=== PATIENT | female | born 1935 | race African-American/Black ===

== ENCOUNTER 2016-07-07 10:04 | Inpatient (IN) | payer MEDICARE, OTHER ==
[~2016-07-07] VITALS: Ht 152.4 cm; Wt 38.2 kg
--- NOTE | 2016-07-07 10:32 | NUR ---
PT TO ROOM FROM ADMISSIONS. WILL ADMIT. PT HAS ORDER FOR TELE, BUT THE MONITORS ARE BROKEN AND TELE SAMPLE CARD MAKER ONLY TAKING CHEST PAIN DX AT THIS TIME
[2016-07-07] MEDS ORDERED: OMEPRAZOLE20 M1 PO (10:43)
[2016-07-07] MEDS ORDERED: HYDROCODON-ACE1 EAC7 PO (10:43)
[2016-07-07] MEDS ORDERED: ULTRAM50 MG PO (10:43)
[2016-07-07 10:44] VITALS: BP 128/73; BMI 15.9
[2016-07-07] MEDS ORDERED: PROBIOTIC1 EAC1 PO (10:44)
[2016-07-07 10:49] LABS: BASOPHILS 0.1 % (0-2); EOSINOPHILS 0.1 % (0-7); HEMATOCRIT 32.5 % (36.0-48.0); HEMOGLOBIN 10.1 g/dL (12-16); IMMATURE GRANULOCYTES 0.3 % (0-5); LYMPHOCYTES 9.5 % (15-50); MCHC 31.1 g/dL (31.0-37.0); MCV 86.9 fL (80.0-100.0); MEAN PLATELET VOLUME 9.8 fL (7.4-10.4); MONOCYTES 7.7 % (2-11); NEUTROPHILS 82.3 % (40-80); PLATELET COUNT 592 10x3/uL (130-400); RBC 3.74 10x6/uL (4.00-5.40); RDW 15.3 % (11.5-14.5); WBC 11.6 10x3/uL (4.8-10.8)
--- NOTE | 2016-07-07 10:59 | NUR ---
STUDENT NURSE STARTED PIV TO LEFT WRIST 20G X2 STICKS. DRESSING CDI AND SIGNED AND DATED
[2016-07-07 11:18] LABS: ALBUMIN 2.2 g/dL (3.4-5.0); ALKALINE PHOSPHATASE 116 U/L (46-116); ALT (SGPT) 25 U/L (10-68); CALC OSMOLALITY 269 mosm/kg (275-300); CALCIUM 9.2 mg/dL (8.5-10.1); CARBON DIOXIDE 31.2 mmol/L (21.0-32.0); CHLORIDE - SERUM 97 mmol/L (98-107); CREATININE - SERUM 0.6 mg/dL (0.6-1.3); GLUCOSE 106 mg/dL (74-106); POTASSIUM - SERUM 4.4 mmol/L (3.5-5.1); PROTEIN - SERUM 6.4 g/dL (6.4-8.2); SODIUM 135 mmol/L (136-145); UREA NITROGEN 13 mg/dL (7-18); eGFR NON AFRICAN AMERICAN > 90 mL/min (90-120)
--- NOTE | 2016-07-07 12:10 | NUR ---
PT C/O PAIN IN ABDOMEN AREA. PAGED DR HER TO ASK TO RESTART HOME PAIN MEDICATIONS
[2016-07-07 12:18] VITALS: BP 129/73
[2016-07-07 12:57] LABS: % SATURATION 6 % (15-55); IRON 11 ug/dl (35-150); TOTAL IRON BIND CAPACITY 165 ug/dl (260-445); UNSAT IRON BIND CAPACITY 154 ug/dl (150-375)
[2016-07-07 13:13] LABS: THYROID STIMULATING HORMONE 2.63 uIU/mL (0.36-3.74)
--- NOTE | 2016-07-07 13:37 | NUR ---
PAGED DR KATHLEEN TO SEE IF OK WITH HER FOR PT TO RECEIVE MEGACE. (DR HER WANTS TO MAKE SURE OK WITH HER)
[2016-07-07 14:03] LABS: AMYLASE - SERUM 26 U/L (25-115); LIPASE 65 U/L (73-393)
--- NOTE | 2016-07-07 15:08 | NUR ---
SCDS ARE ON AND PATENT. PT SLEEPING SOUNDLY NO S/S DISTRESS NOTED. IV FLUIDS RUNNING TO LEFT WRIST WITHOUT ANY PROBLEMS WILL CONT TO MONITOR
--- NOTE | 2016-07-07 15:40 | NUR ---
HELPED PT TO RESTROOM, PT HASNT VOIDED SINCE ADMISSION. PT SAT ON TOILET FOR 15 MINS, NO LUCK. SCANNED BLADDER, CURRENTLY 233 ML..WILL CONT TO MONITOR
[2016-07-07 16:51] VITALS: BP 126/71
--- NOTE | 2016-07-07 17:17 | NUR ---
PT SITTING UP IN BED DENIES NEEDS WILL CONT TO MONITOR
--- NOTE | 2016-07-07 18:16 | NUR ---
DR KATHLEEN SAID OK TO DO IN AND OUT CATH IF PT UNABLE TO DO CLEAN CATCH. DONE. AND COLLECTED UA AND SENT TO LAB
[2016-07-07 18:30] LABS: APPEARANCE HAZY (CLEAR); BILIRUBIN NEGATIVE (NEGATIVE); COLOR YELLOW (YELLOW); GLUCOSE NEGATIVE (NEGATIVE); KETONE NEGATIVE (NEGATIVE); LEUKOCYTE ESTERASE NEGATIVE (NEGATIVE); NITRITE NEGATIVE (NEGATIVE); PROTEIN NEGATIVE (NEGATIVE); UROBILINOGEN NORMAL (NORMAL)
[2016-07-07 19:00] VITALS: BP 131/70
--- NOTE | 2016-07-07 20:06 | NUR ---
RECEIVED REPORT, PT RESTING QUIETLY, CALL LIGHT IN REACH, BED IS LOW, SRX2, WILL CONTINUE TO MONITOR
[2016-07-08 05:51] LABS: BASOPHILS 0.1 % (0-2); EOSINOPHILS 0.1 % (0-7); HEMATOCRIT 30.4 % (36.0-48.0); HEMOGLOBIN 9.7 g/dL (12-16); IMMATURE GRANULOCYTES 0.3 % (0-5); LYMPHOCYTES 6.9 % (15-50); MCH 27.3 pg (26.0-34.0); MCHC 31.9 g/dL (31.0-37.0); MCV 85.6 fL (80.0-100.0); MEAN PLATELET VOLUME 9.6 fL (7.4-10.4); MONOCYTES 6.5 % (2-11); NEUTROPHILS 86.1 % (40-80); PLATELET COUNT 516 10x3/uL (130-400); RBC 3.55 10x6/uL (4.00-5.40); RDW 15.3 % (11.5-14.5); WBC 12.1 10x3/uL (4.8-10.8)
[2016-07-08 07:33] VITALS: BP 147/74
[2016-07-08 08:00] VITALS: BP 135/74
[2016-07-08 09:45] LABS: T4 THYROXINE 8.6 ug/dL (4.7-13.3); THYROID STIMULATING HORMONE 1.97 uIU/mL (0.36-3.74)
[2016-07-08 10:00] VITALS: Ht 152.4 cm; Wt 38.2 kg
--- NOTE | 2016-07-08 17:29 | NUR ---
PATIENT IS CURRENTLY SITTING UP IN HER BED EATING HER MEAL. REQUIRES ASSISTANCE WITH MEAL SET UP. PATIENT IS ABLE TO ANSWER QUESTIONS APPROPRIATELY. REQUIRES ASSISTANCE X1 TO GET UP OOB TO STANDING. GAIT IS STEADY. IV IS INFUSING PER ORDERS. IRON IS COMPLETED. PATIENT DOES C/O GASTRIC PAIN THAT IS ONLY MINIMALLY RELIEVED BY NORCO. HAVE CLARIFIED WHERE THE GI DOCTOR LOCATION. WILL OBTAIN RECORDS. SUNDAY
[2016-07-08 18:34] LABS: ALBUMIN 1.8 g/dL (3.4-5.0); BILIRUBIN - DIRECT 0.18 mg/dL (0.00-0.30); BILIRUBIN - INDIRECT 0.32 mg/dL (0.00-1.00); BILIRUBIN - TOTAL 0.5 mg/dL (0.2-1.3); PROTEIN - SERUM 5.9 g/dL (6.4-8.2)
[2016-07-08 20:00] VITALS: BP 110/64
--- NOTE | 2016-07-08 23:48 | NUR ---
INIITAL ROUNDS COMPLETED AT 192 HRS. ASSISTED TO BR. VOIED SMALL AMOUNT OF URINE. ASSISTED BACK TO BED. ASSESSMENT COMPLETED AT 2024 HRS. VSS. IV TO L WRIST WITH NS AT 75CC/HR. IV PATENT. LUNGS DIMINISHED IN BASES BILAT. SMALL 1CM SORE NOTED TO INNER R BUTTOCKS. SCD'S IN USE. REMOVED AND SKIN INSPECTED. NO BREAKDOWN NOTED. PT CURRENTLY RESTING WITH EYES CLOSED. RESP EVEN AND REGULAR. SR UP X2, CALL LIGHT WITHIN REACH.
[2016-07-09] VITALS: BP 114/62
--- NOTE | 2016-07-09 01:07 | NUR ---
PT RESTING WITH EYES CLOSED. RESP EVEN AND REGULAR. SR UP X2,CALL LIGHT WITHIN REACH.
--- NOTE | 2016-07-09 03:37 | NUR ---
PT RESTING WITH EYES CLOSED. RESP EVEN AND REGULAR. SR UP X2, CALL LIGHT WITHIN REACH.
[2016-07-09 04:00] VITALS: BP 120/68
--- NOTE | 2016-07-09 04:35 | NUR ---
PT RESTING WITH EYES CLOSED. RESP EVEN AND REGULAR. SR UP X2, CALL LIGHT WITHIN REACH AND BED ALARM ON.
[2016-07-09 04:57] LABS: BASOPHILS 0.1 % (0-2); EOSINOPHILS 0.3 % (0-7); HEMATOCRIT 29.4 % (36.0-48.0); HEMOGLOBIN 9.2 g/dL (12-16); IMMATURE GRANULOCYTES 0.3 % (0-5); LYMPHOCYTES 9.3 % (15-50); MCH 26.7 pg (26.0-34.0); MCHC 31.3 g/dL (31.0-37.0); MCV 85.5 fL (80.0-100.0); MEAN PLATELET VOLUME 9.6 fL (7.4-10.4); MONOCYTES 7.5 % (2-11); NEUTROPHILS 82.5 % (40-80); PLATELET COUNT 560 10x3/uL (130-400); RBC 3.44 10x6/uL (4.00-5.40); RDW 15.1 % (11.5-14.5); WBC 10.4 10x3/uL (4.8-10.8)
[2016-07-09 05:25] LABS: ALBUMIN 1.5 g/dL (3.4-5.0); ALKALINE PHOSPHATASE 93 U/L (46-116); ALT (SGPT) 15 U/L (10-68); CALC OSMOLALITY 272 mosm/kg (275-300); CALCIUM 8.3 mg/dL (8.5-10.1); CARBON DIOXIDE 27.4 mmol/L (21.0-32.0); CHLORIDE - SERUM 102 mmol/L (98-107); CREATININE - SERUM 0.5 mg/dL (0.6-1.3); GLUCOSE 105 mg/dL (74-106); POTASSIUM - SERUM 3.7 mmol/L (3.5-5.1); PROTEIN - SERUM 5.3 g/dL (6.4-8.2); SODIUM 137 mmol/L (136-145); UREA NITROGEN 9 mg/dL (7-18); eGFR NON AFRICAN AMERICAN > 90 mL/min (90-120)
--- NOTE | 2016-07-09 05:46 | NUR ---
VSS THROUGHOUT NIGHT. PT DENIED ANY DISCOMFORT. NEEDS MET; WILL CONTINUE TO MONITOR.
[2016-07-09 08:00] VITALS: BP 135/75
--- NOTE | 2016-07-09 09:00 | NUR ---
ALERT AND ORIENTED X4. AMBULATING IN [place], PHYSICAL THERAPY STAND BY ASSIST. AMBULATES 500FT. GAIT STEADY. PHYSICAL THERAPY SIGNED OFF. RETURN TO ROOM. LT WRIST IV INFILTRATED. DC LT WRIST IV TIP INTACT. REPORTS LT SIDE PAIN 08/19. INITIATE PAIN MANAGEMENT ORDERED. DENIES SOB. CONTINUE PLAN OF CARE AND SAFETY PRECAUTIONS.
--- NOTE | 2016-07-09 14:00 | NUR ---
RESITE IV RT FA 20G SUCCESSFUL X3 ATTEMPTS. ALERT AND ORIENTED X4. FAMILY AT BEDSIDE. DENIES ANY NEEDS AT THIS TIME. CONTINUE PLAN OF CARE AND SAFETY PRECAUTIONS.
[2016-07-09 16:00] VITALS: BP 118/67
--- NOTE | 2016-07-09 20:06 | NUR ---
INITIAL ROUNDS COMPLETED AT 5 HRS. PT DENIED ANY DISCOMFORT. ASSESSMETN COMPLETED AT 1940 HRS. IV TO RFA WITH NS AT 75CC/HR. IV PATNETN. LUNGS ESSSENTIALLY CTA. HEART TONES S1 S2. JEFFERY. DECLINES SCD'S AT THIS TIME. WILL CONTINUE TO MONITOR. SR UP X2, CALL LIGHT WITHIN REACH AND BED ALARM ON.
--- NOTE | 2016-07-09 22:09 | NUR ---
PM MEDS GIVEN. PT DENIES ANY DISCOMFORT. WILL CONTINUE TO MONITOR.
[2016-07-09 22:11] VITALS: BP 118/63
[2016-07-10] VITALS: BP 153/69
--- NOTE | 2016-07-10 00:38 | NUR ---
ASSISTED PT TO BR. VOIDED 300CC OF URINE WITH TINY AMOUNT OF BOYKIN STOOL. ASSITED BACK TO BED. PT DENIES ANY DISCOMFORT. WILL CONTINUE TOMONITOR.
--- NOTE | 2016-07-10 02:45 | NUR ---
PT RESTING WITH EYES CLOSED. RESP EVEN AND REGULAR. SR UP X2, CALL LIGHT WITHIN REACH.
--- NOTE | 2016-07-10 04:38 | NUR ---
PT AWAKE; DENIES ANY DISCOMFORT. WILL CONTINUE TO MONITOR.
[2016-07-10 04:56] LABS: BASOPHILS 0.1 % (0-2); EOSINOPHILS 0.2 % (0-7); HEMATOCRIT 29.2 % (36.0-48.0); HEMOGLOBIN 9.1 g/dL (12-16); IMMATURE GRANULOCYTES 0.3 % (0-5); LYMPHOCYTES 11.7 % (15-50); MCH 26.6 pg (26.0-34.0); MCHC 31.2 g/dL (31.0-37.0); MCV 85.4 fL (80.0-100.0); MEAN PLATELET VOLUME 10.1 fL (7.4-10.4); MONOCYTES 10.9 % (2-11); NEUTROPHILS 76.8 % (40-80); PLATELET COUNT 572 10x3/uL (130-400); RBC 3.42 10x6/uL (4.00-5.40); RDW 15.3 % (11.5-14.5); WBC 8.6 10x3/uL (4.8-10.8)
[2016-07-10 05:02] LABS: CALC OSMOLALITY 271 mosm/kg (275-300); CALCIUM 8.4 mg/dL (8.5-10.1); CARBON DIOXIDE 29.2 mmol/L (21.0-32.0); CHLORIDE - SERUM 102 mmol/L (98-107); CREATININE - SERUM 0.5 mg/dL (0.6-1.3); GLUCOSE 86 mg/dL (74-106); POTASSIUM - SERUM 3.9 mmol/L (3.5-5.1); SODIUM 137 mmol/L (136-145); UREA NITROGEN 9 mg/dL (7-18); eGFR NON AFRICAN AMERICAN > 90 mL/min (90-120)
[2016-07-10 06:17] VITALS: BP 129/75
--- NOTE | 2016-07-10 06:25 | NUR ---
VSS THROUGHOUT NGIHT. PT DENIED ANY DISCOMFORT. STOOL SAMPLE SENT TOLAB. SAMPLE SAN IN COLOR. NEEDS MET; WILL CONTINUE TO MONITOR.
[2016-07-10 08:45] VITALS: BP 145/70
[2016-07-10 12:12] LABS: FOLATE (FOLIC ACID) - SERUM 7.6 ng/mL (>3.0)
[2016-07-10 12:47] VITALS: BP 97/57
--- NOTE | 2016-07-10 13:16 | NUR ---
Nutrition Follow Up: Chart reviewed. Pt is tolerating regular diet. +BM 07/10/16. Labs reviewed. Meds noted including Zofran, Megace, NS @ 75 ml/hr. 24 hour Calorie Count: 07/08/16 Lunch: 363 kcal14 g protein 07/08/16 Dinner: 790 kcal27 g protein 07/09/16 Breakfast:230 kcal2 g protein 07/09/16: Lunch: 351 kcal14 g protein Total for 24 hours: 1734 kcal57 g protein Pt is meeting est nutritional needs. She has excellent po intake at this time. Rec continue current diet, appetite stimulant. Will continue to provide selective menus and honor food preferences. RD following.
[2016-07-10 17:26] VITALS: BP 103/57
--- NOTE | 2016-07-10 18:06 | NUR ---
ALERT AND ORIENTED X4. RESTING IN BED. KENNETH OINTMENT ORDERED FOR BUTTOCKS. NEEDS EGG CRATE MATTRESS. RISK FOR INJURY FOR AIR MATTRESS. CHE ([place]) REQUESTING SURGERY CONSULT REGARDING GI FINDINGS. CONTINUE PAIN MANAGEMENT FOR ABDOMINAL PAIN ORDERED. DENIES SOB. CONTINUE PLAN OF CARE AND SAFETY PRECAUTIONS.
--- NOTE | 2016-07-10 19:37 | NUR ---
ALERT/AWAKE ORIENTED X 4. C/O RT SHOULDER PAIN LEVEL 6 ON NUMBER SCALE. STATED FROM A FALL AT HOME. IV IN R FA INTACT WITH NS INFUSING AT 75ML/HR. NO S/S OF REDNESS OR EDEMA. TURNED TO RT SIDE WITH PILLOW TO BACK. EXCORIATION AND REDNESS NOTED ON LEFT BUTTOCK. SCD'S ARE ON. ORIENTED TO CALL LIGHT FOR ANY NEEDS. BEDSIDE TABLE WITH PERSONAL ITEMS PLACED IN REACH.
[2016-07-10 19:45] VITALS: BP 111/71
[2016-07-11 00:29] VITALS: BP 115/64
--- NOTE | 2016-07-11 01:04 | NUR ---
REPOSITIONED UP IN BED AND TO RIGHT SIDE WITH PILLOW TO BACK. DID NOT WANT TO USE BATHROOM. APPLIED CALMOSEPTINE TO BUTTOCKS.
--- NOTE | 2016-07-11 05:16 | NUR ---
ASSISTED BACK TO BED FROM [facility] [place] [facility]. VOIDED 350CC DARK URINE AND SMALL AMT OF BOYKIN COLORED LIQUID STOOL. POSITIONED TO LEFT SIDE WITH PILLOW TO HER BACK. TOOK A FEW SIPS OF ICE WATER. REQUESTED LIGHTS OFF TO SLEEP.
[2016-07-11 05:52] LABS: BASOPHILS 0.2 % (0-2); EOSINOPHILS 0.1 % (0-7); HEMATOCRIT 30.9 % (36.0-48.0); HEMOGLOBIN 9.6 g/dL (12-16); IMMATURE GRANULOCYTES 0.4 % (0-5); LYMPHOCYTES 12.5 % (15-50); MCH 26.9 pg (26.0-34.0); MCHC 31.1 g/dL (31.0-37.0); MCV 86.6 fL (80.0-100.0); MEAN PLATELET VOLUME 10.5 fL (7.4-10.4); MONOCYTES 11.1 % (2-11); NEUTROPHILS 75.7 % (40-80); RBC 3.57 10x6/uL (4.00-5.40); RDW 15.7 % (11.5-14.5)
[2016-07-11 06:04] LABS: PLATELET COUNT 363 10x3/uL (130-400)
[2016-07-11 06:18] LABS: ALBUMIN 1.7 g/dL (3.4-5.0); ALKALINE PHOSPHATASE 94 U/L (46-116); ALT (SGPT) 15 U/L (10-68); CALC OSMOLALITY 268 mosm/kg (275-300); CALCIUM 8.5 mg/dL (8.5-10.1); CARBON DIOXIDE 25.6 mmol/L (21.0-32.0); CHLORIDE - SERUM 103 mmol/L (98-107); CREATININE - SERUM 0.4 mg/dL (0.6-1.3); GLUCOSE 83 mg/dL (74-106); MAGNESIUM - SERUM 1.5 mg/dL (1.8-2.4); PHOSPHOROUS 2.8 mg/dL (2.5-4.9); POTASSIUM - SERUM 4.2 mmol/L (3.5-5.1); PROTEIN - SERUM 5.4 g/dL (6.4-8.2); SODIUM 136 mmol/L (136-145); UREA NITROGEN 8 mg/dL (7-18); eGFR NON AFRICAN AMERICAN > 90 mL/min (90-120)
--- NOTE | 2016-07-11 07:40 | NUR ---
ALERT AND ORIENTED X4. RESTING IN BED. FAMILY AT BEDSIDE. ORDERED PHYSICAL THERAPY TO ASSIST AMBULATING ONCE A DAY. EGG CRATE ORDERED. NOTIFIED OF CONSULT. COMPLAINS OF ABDOMINAL PAIN. INITIATE PAIN MANAGEMENT ORDERED. DENIES SOB. CONTINUE PLAN OF CARE AND SAFETY PRECAUTIONS. BED ALARM ON. SCDs ON.
[2016-07-11 09:12] VITALS: BP 123/64
[2016-07-11 12:11] VITALS: BP 108/61
[2016-07-11 15:18] VITALS: BP 107/61
--- NOTE | 2016-07-11 17:03 | NUR ---
Patient Name: BEN JORDAN Admission Status: Urgent Accout number: [id number] Admission Date: 07-07-2016 : 1935 Admission Diagnosis: Attending: RADHA Current LOS: 4 Anticipated DC Date: 07-11-2016 Planned Disposition: Long-Term Facility Primary Insurance: MEDICARE A & B PLANNED EXTERNAL PROVIDER: [facility] BED Discharge Planning Comments: * Is the patient Alert and Oriented? Yes 0 * How many steps to enter\exit or inside your home? 2 0 * PCP DR. EDWARDS IN [place] 0 * Pharmacy [facility] IN [place] 0 * Preadmission Environment Home with Family 0 * ADLs Independent 0 * Equipment None 0 * Other Equipment NO MEDICAL EQUIPMENT PROVIDER PREFERENCE 0 * List name and contact numbers for known caregivers / representatives who currently or will assist patient after discharge: ROCKY JORDAN, SPOUSE, 0 * Community resources currently utilized Home Health 0 * Please name any agencies selected above. [facility] 0 * Additional services required to return to the preadmission environment? No 0 * Can the patient safely return to the preadmission environment? Yes 0 * Has this patient been hospitalized within the prior 30 days at any hospital? No 0 CM MET WITH PT AND SPOUSE IN ROOM TO DISCUSS DISCHARGE PLANNING AND NEEDS. PT REPORTS LIVING AT HOME INDEPENDENTLY WITH HER SPOUSE. PT HAS NO MEDICAL EQUIPMENT AND HOME HEALTH WITH [facility]. PT'S SPOUSE REPORTS HOME HEALTH HAS ORDERED MEDICAL EQUIPMENT FOR HOME. CM DISCUSSED AVAILABILITY OF HOME HEALTH, REHAB SERVICES AND MEDICAL EQUIPMENT. PT DENIES DISCHARGE NEEDS, FAMILY IS CONSIDERING REHAB AT [facility]. CM PROVIDED [facility] INFORMATION AND CHOICE LETTER. CM WAITING FAMILY DECISION FOR [facility] REHAB AT [facility] VS HOME WITH [facility] RESUMPTION. Food Court Team Member: Neo Gonzales
--- NOTE | 2016-07-11 19:27 | NUR ---
ALERT/ORIENTED X 4. DENIES PAIN OR ANY NEEDS. POSITIONED TO RIGHT SIDE. IV IN R FA WITH NS INFUSING 75ML/HR. ORIENTED TO CALL LIGHT FOR ANY NEEDS OR DISCOMFORTS.
[2016-07-11 20:18] VITALS: BP 124/66
[2016-07-11 21:00] LABS: C-REACTIVE PROTEIN 11.2 mg/dL (0.0-0.9); MAGNESIUM - SERUM 1.4 mg/dL (1.8-2.4); PRE-ALBUMIN 9.3 mg/dL (18.0-35.7)
[2016-07-11 21:05] LABS: TROPONIN-I 0.016 ng/mL (0.000-0.060)
--- NOTE | 2016-07-11 22:30 | NUR ---
BACK FROM CT SCAN. ASSISTED TO [facility] [place] [facility] AND VOIDED 400CC URINE. APPLIED CALMOSEPTINE OINTMENT TO BUTTOCKS.
[2016-07-11 23:57] VITALS: BP 127/61
[2016-07-12 03:52] VITALS: BP 129/66
--- NOTE | 2016-07-12 04:10 | NUR ---
ADMIN NORCO 5 PO FOR C/O ABD PAIN LEVEL 6 ON NUMBER SCALE. POINTING TO UPPER ABD, DESCRIBING A BURNING PAIN. ALSO ADMIN ZOFRAN IV FOR SPITTING UP SMALL AMOUT OF PINKISH FLUID. SAME COLOR CONTRAST SHE DRANK FOR CT SCAN EARLIER IN THE EVENING.
[2016-07-12 04:54] LABS: HEMATOCRIT 26.8 % (36.0-48.0); HEMOGLOBIN 8.4 g/dL (12-16); MCH 26.5 pg (26.0-34.0); MCHC 31.3 g/dL (31.0-37.0); MEAN PLATELET VOLUME 9.6 fL (7.4-10.4); RBC 3.17 10x6/uL (4.00-5.40); RDW 15.7 % (11.5-14.5); WBC 10.7 10x3/uL (4.8-10.8)
[2016-07-12 05:07] LABS: MCV 84.5 fL (80.0-100.0); PLATELET COUNT 598 10x3/uL (130-400)
[2016-07-12 05:17] LABS: ALBUMIN 1.6 g/dL (3.4-5.0); ALKALINE PHOSPHATASE 89 U/L (46-116); ALT (SGPT) 12 U/L (10-68); BILIRUBIN - TOTAL 0.37 mg/dL (0.2-1.3); CALCIUM 8.4 mg/dL (8.5-10.1); CARBON DIOXIDE 27.2 mmol/L (21.0-32.0); CHLORIDE - SERUM 103 mmol/L (98-107); GLUCOSE 89 mg/dL (74-106); PROTEIN - SERUM 5.5 g/dL (6.4-8.2); SODIUM 135 mmol/L (136-145)
[2016-07-12 05:36] LABS: CALC OSMOLALITY 265 mosm/kg (275-300); CREATININE - SERUM 0.6 mg/dL (0.6-1.3); POTASSIUM - SERUM 3.3 mmol/L (3.5-5.1); UREA NITROGEN 5 mg/dL (7-18); eGFR NON AFRICAN AMERICAN > 90 mL/min (90-120)
[2016-07-12 05:51] LABS: LYMPHOCYTES 10 % (15-50); MONOCYTES 8 % (2-11); NEUTROPHILS 72 % (40-80); PLATELET ESTIMATE NORMAL; PLATELET MORPHOLOGY GIANT PLTS PRESENT
[2016-07-12 06:10] LABS: ERYTHROCYTE SEDIMENTATION RATE 41 mm/hr (0-30)
[2016-07-12 07:30] VITALS: BP 115/62
--- NOTE | 2016-07-12 11:21 | NUR ---
RIGHT FA IV INITIATED AFTER THE IV ACCESS IN HER WRIST APPEARED TO BE SWELLING AND WAS INFILTRATED.
[2016-07-12 12:30] VITALS: BP 137/72
--- NOTE | 2016-07-12 14:11 | NUR ---
PATIENT IS SITTING UP IN THE BEDSIDE CHAIR. SHE HAS EATEN HER LUNCH WHILE VISITING WITH HER BROTHER.
--- NOTE | 2016-07-12 16:05 | NUR ---
PATIENT SIGNED CONSENT TO RECEIVE A UNIT OF PRBC.
[2016-07-12 16:30] VITALS: BP 141/70
--- NOTE | 2016-07-12 17:03 | NUR ---
BLOOD INFUSING WITHOUT EVIDENCE OF ADVERSE REACTIONS.
[2016-07-12 19:00] VITALS: BP 118/63
--- NOTE | 2016-07-12 19:12 | NUR ---
PT RECEIVED LYING IN BED RESTING QUIETLY AT THIS TIME. REQUESTS TO GET UP AND USE RESTROOM AT THIS TIME. PT VOIDED APPROX 200 CC AT THIS TIME. ASSISTED PT BACK TO BED. ASSESSMENT COMPLETED PER FLOW SHEET. PT DENIES NEEDS AT THIS TIME. BED LOW. PHONE AND CALL LIGHT IN REACH. SRX2.
--- NOTE | 2016-07-12 20:25 | NUR ---
PM MEDS GIVEN AT THIS TIME. PT DENIES NEEDS. BED LOW. PHONE AND CALL LIGHT IN REACH. SRX2.
--- NOTE | 2016-07-12 22:00 | NUR ---
PT RESTING QUIETLY AT THIS TIME WITH EYES CLOSED. RESPIRATIONS EVEN, NON-LABORED. NO ACUTE DISTRESS NOTED AT THIS TIME. BED LOW. PHONE AND CALL LIGHT IN REACH. SRX2.
[2016-07-13] VITALS: BP 119/63
[2016-07-13 04:00] VITALS: BP 118/65
--- NOTE | 2016-07-13 07:16 | NUR ---
PT SITTING UP IN BED DENIES NEEDS WILL CONT TO MONITOR
[2016-07-13 08:00] VITALS: BP 119/62
[2016-07-13 08:41] LABS: BASOPHILS 0.1 % (0-2); EOSINOPHILS 0.3 % (0-7); IMMATURE GRANULOCYTES 0.5 % (0-5); LYMPHOCYTES 10.2 % (15-50); MCH 26.4 pg (26.0-34.0); MCHC 31.6 g/dL (31.0-37.0); MCV 83.8 fL (80.0-100.0); MEAN PLATELET VOLUME 9.6 fL (7.4-10.4); MONOCYTES 9.5 % (2-11); NEUTROPHILS 79.4 % (40-80); PLATELET COUNT 568 10x3/uL (130-400); WBC 10.2 10x3/uL (4.8-10.8)
[2016-07-13 08:47] LABS: HEMOGLOBIN 10.1 g/dL (12-16); RBC 3.82 10x6/uL (4.00-5.40)
[2016-07-13 08:49] LABS: CALC OSMOLALITY 276 mosm/kg (275-300); CALCIUM 8.8 mg/dL (8.5-10.1); CARBON DIOXIDE 27.4 mmol/L (21.0-32.0); CHLORIDE - SERUM 107 mmol/L (98-107); CREATININE - SERUM 0.7 mg/dL (0.6-1.3); GLUCOSE 97 mg/dL (74-106); POTASSIUM - SERUM 3.5 mmol/L (3.5-5.1); SODIUM 139 mmol/L (136-145); eGFR NON AFRICAN AMERICAN 85 mL/min (90-120)
[2016-07-13 08:53] LABS: UREA NITROGEN 10 mg/dL (7-18)
--- NOTE | 2016-07-13 09:00 | NUR ---
PT TRIED TO GET UP TO BEDSIDE COMMODE UNASSISTED, BA WAS GOING OFF. HELPED PT TO BEDSIDE COMMODE. STAYED IN ROOM WITH PT SINCE PT IS FORGETTFUL OF USING CALL LIGHT FOR 45 MINUTES UNTIL SHE WAS FINISHED WITH USING THE BSC. PT URINATED AND BM X1. STOOL WAS WHITE IN COLOR. AFTER PT WAS FINISHED HELPED PT TO THE CHAIR AND APPLIED BOX ALARM. WILL CONT TO MONITOR
--- NOTE | 2016-07-13 09:50 | NUR ---
PT WALKED THE ENTIRE FLOOR X3 TIMES. (2.5 FOOTBALL MONGE) PT SITTING UP TO CHAIR
[2016-07-13 10:18] LABS: CA 19-9 39 U/mL (0-35); CEA 2.1 ng/mL (0.0-4.7)
[2016-07-13 11:20] LABS: HEPATITIS C ANTIBODY 0.1 (0.0-0.9)
[2016-07-13 12:00] VITALS: BP 140/74
--- NOTE | 2016-07-13 13:01 | NUR ---
PT LAYING IN BED. TWO VISITORS AT BEDSIDE. THEY FED HER LUNCH AND HELPED HER TO THE BATHROOM X1 THAT I HAVE SEEN. PT IN NO S/S DISTRESS VISITING WITH PT. WILL CONT TO MONITOR
--- NOTE | 2016-07-13 13:50 | NUR ---
Nutrition follow-up: Diet: Regular as tolerated with fresh fruit all trays PO intake ~25% of meals Labs reviewed +BM Wt: 93# PO intake poor to fair Will continue to provide food choices and encourage increased po intake. Following.
[2016-07-13 16:00] VITALS: BP 114/61
--- NOTE | 2016-07-13 17:18 | NUR ---
PT LAYING TO LEFT SIDE RESTING AT BEDSIDE DENIES NEEDS WILL CONT TO MONITOR
--- NOTE | 2016-07-13 19:20 | NUR ---
Received patient resting in bed, awake, alert, oriented to person and place, bedalarm on for safety. PIV in right forearm infusing NS @75ml/hr. Denies pain or discomfort at this time. Respirations easy and regular on room air. Will continue to monitor.
[2016-07-13 20:00] VITALS: BP 135/73
--- NOTE | 2016-07-13 20:08 | NUR ---
Entered room to find IV pump was turned off. IV tubing still attached to PIV in right forearm, flushed PIV with NS and IV restarted of NS @75ml/hr. IVPB antibiotic hung but not yet started, patient complains of slight pain at site. No redness or swelling will continue to monitor with NS infusing and recheck prior to infusing IVPB antibiotic.
--- NOTE | 2016-07-13 20:30 | NUR ---
PIV in right forearm swollen and painful at insertion site. Deemed to have infiltrated. PIV removed, catheter intact. Patient wants to wait awhile before nurse resites PIV.
--- NOTE | 2016-07-13 20:32 | NUR ---
Ice pack placed on swelling on right forearm where PIV had been removed. Patient reports this is helping.
--- NOTE | 2016-07-13 22:35 | NUR ---
Attempted x 1 to restart PIV, unsuccessful. Charge Nurse attempted and also unsuccessful, patient refusing any more attempts. Will notify MD in the morning.
--- NOTE | 2016-07-13 23:28 | NUR ---
Patient is resting quietly in bed with eyes closed, respirations easy and regular, deemed to be sleeping at this time.
[2016-07-14] VITALS: BP 132/73
--- NOTE | 2016-07-14 03:24 | NUR ---
Assisted with routine care, turning and repositioning per policy. Sleeping long periods, no signs of distress, respirations unlabored.
[2016-07-14 04:00] VITALS: BP 140/73
[2016-07-14 05:20] LABS: BASOPHILS 0.1 % (0-2); EOSINOPHILS 0.3 % (0-7); HEMATOCRIT 32.1 % (36.0-48.0); HEMOGLOBIN 10.1 g/dL (12-16); IMMATURE GRANULOCYTES 0.7 % (0-5); LYMPHOCYTES 8.8 % (15-50); MCH 26.4 pg (26.0-34.0); MCHC 31.5 g/dL (31.0-37.0); MEAN PLATELET VOLUME 9.4 fL (7.4-10.4); MONOCYTES 6.7 % (2-11); NEUTROPHILS 83.4 % (40-80); PLATELET COUNT 552 10x3/uL (130-400); RBC 3.82 10x6/uL (4.00-5.40); RDW 17.8 % (11.5-14.5)
[2016-07-14 05:23] LABS: WBC 13.6 10x3/uL (4.8-10.8)
--- NOTE | 2016-07-14 05:37 | NUR ---
Continues to adamantly refuse having a PIV restarted, states she has been poked enough over the past few days. Slept fairly well. No voiced complaints at this time.
[2016-07-14 05:45] LABS: ALBUMIN 1.6 g/dL (3.4-5.0); ALKALINE PHOSPHATASE 105 U/L (46-116); ALT (SGPT) 12 U/L (10-68); BILIRUBIN - TOTAL 0.24 mg/dL (0.2-1.3); CALC OSMOLALITY 275 mosm/kg (275-300); CALCIUM 8.5 mg/dL (8.5-10.1); CARBON DIOXIDE 26.2 mmol/L (21.0-32.0); CHLORIDE - SERUM 106 mmol/L (98-107); CREATININE - SERUM 0.6 mg/dL (0.6-1.3); GLUCOSE 105 mg/dL (74-106); POTASSIUM - SERUM 3.4 mmol/L (3.5-5.1); PROTEIN - SERUM 5.6 g/dL (6.4-8.2); SODIUM 139 mmol/L (136-145); UREA NITROGEN 8 mg/dL (7-18); eGFR NON AFRICAN AMERICAN > 90 mL/min (90-120)
--- NOTE | 2016-07-14 05:48 | NUR ---
Charge Nurse aware that patient is still refusing to have another PIV placed.
--- NOTE | 2016-07-14 07:04 | NUR ---
PT LAYING FLAT SLEEPING NO S/S DISTRESS NOTED. BA IS ON AND PATENT. PT IS REFUSING IV ACCESS.. WILL CONT TOMONITOR
--- NOTE | 2016-07-14 07:25 | NUR ---
SPOKE WITH DR HER ABOUT PT REFUSING IV ACCESS, HE SAID NO PROBLEM JUST LEAVE IT OUT
[2016-07-14 08:00] VITALS: BP 147/75
--- NOTE | 2016-07-14 10:05 | NUR ---
PT IS ATTEMPTING TO GET DRESSED THIS AM, DR HER TALKED WITH PT EARLY THIS AM AND TOLD HER THAT IF SHE DIDNT WANT ANY MORE TREATMENT, WHICH PT DOES NOT, THEN SHE COULD GO HOME ON HOSPICE IF THAT WAS SOMETHING SHE WANTED TO DO. PT IS AGREEABLE, SHE DOES NOT WANT TO GO TO [facility]. NOR WILL THEY ACCEPT HER DUE TO HER WALKING LONG DISTANCES. CASE MANAGEMENT IS INVOLVED, DR HER HAS NOT YET PUT IN THE ORDER FOR HOSPICE CONSULT OR DISCHARGE.
[2016-07-14 12:00] VITALS: BP 152/85
--- NOTE | 2016-07-14 15:19 | NUR ---
PT SITTING UP IN BED RESTING DENIES NEEDS WILL CONT TO MONITOR
--- NOTE | 2016-07-14 15:45 | NUR ---
Patient Name: BEN JORDAN Encounter No: [id number] : 1935 Primary Insurance: MEDICARE A & B Anticipated DC Date: 07-11-2016 Planned Disposition: HOME WITH HOSPICE External Planned Provider: TO BE DETERMINED DCP follow-up note: CM RECEIVED HOSPICE ORDER, ATTEMPTED TO MEET WITH PT IN ROOM TO DISCUSS HOSPICE ORDER. PT REPORTS SHE DOES NOT FEEL LIKE TALKING NOW, ASKED CM TO LEAVE. CM LEFT HOSPICE INFORMATION, INFORMED PT THAT CM WOULD BE AVAILABLE WHEN SHE IS FEELING BETTER AND IF SHE WOULD LIKE TO DISCUSS ANY DISCHARGE NEEDS. CM ATTEMPTED TO CALL PT'S SPOUSE AT HOME, , CM LEFT MESSAGE ASKING FOR RETURN CALL. CM WAITING PT TO FEEL LIKE SPEAKING TO CM REGARDING DISCHARGE PLAN AND NEEDS AND FOR FAMILY TO CALL OR SEE CM IN THE HOSPITAL TO DISCUSS HOSPICE CARE. Neo Gonzales, CASE MANAGEMENT
[2016-07-14 16:01] VITALS: BP 136/68
--- NOTE | 2016-07-14 17:02 | NUR ---
PT REQUESTING PAIN PILL FOR ABDOMEN PAIN 04/21. GIVEN PAIN PILL PER EMAR. AT BEDSIDE.
--- NOTE | 2016-07-14 17:08 | NUR ---
Patient Name: BEN JORDAN Encounter No: [id number] : 1935 Primary Insurance: MEDICARE A & B Anticipated DC Date: 07-11-2016 Planned Disposition: HOME WITH HOSPICE External Planned Provider: TO BE DETERMINED DCP follow-up note: PT'S SPOUSE ASKED TO SPEAK TO PT AT NURSES STATION. CM DISCUSSED HOSPICE CONSULTATION ORDER. PT'S SPOUSE REPORTS THAT HE WANTS TO DISCUSS THIS WITH FAMILY BEFORE SPEAKING TO ANY AGENCY; HE PLANS TO HAVE THE FAMILY HERE ON SUNDAY AND WILL NOTIFY CM OF THEIR DECISION THEN. CM OFFERED TO HAVE ANY OF THE HOSPICE AGENCIES MEET WITH THEM TODAY, PT'S SPOUSE DECLINED. CM WAITING ON PT'S SPOUSE TO SPEAK TO FAMILY MEMBERS REGARDING HOSPICE AND MAKING A DECISION TO AT LEAST SPEAK TO HOSPICE AGENCY TO SEE IF THEY WOULD BE INTERESTED. PT'S SPOUSE PLANS TO SPEAK TO HIS FAMILY AND HAVE THEM HERE AT THE HOSPITAL ON 07-17-16. Neo Gonzales, CASE MANAGEMENT
--- NOTE | 2016-07-14 19:46 | NUR ---
ALERT/AWAKE. REQUESTED ASSISTANCE TO BSC. REMOVED SCD'S BEFORE TRANSFER. DENIES PAIN. CALL IN REACH.
--- NOTE | 2016-07-14 21:40 | NUR ---
RETURNED MEROPENEM TO PYS DUE TO NO IV ACCESS. PATIENT DID NOT WANT ANOTHER IV.
[2016-07-14 21:42] VITALS: BP 117/58
[2016-07-15 00:56] VITALS: BP 145/58
--- NOTE | 2016-07-15 01:29 | NUR ---
REPOSITIONED UP IN BED. STRAIGHTEN HER BLANKETS. DID NOT WANT ANYTHING. ORIENTED TO USE CALL LIGHT FOR ANY NEEDS. BED ALARM IS ON.
[2016-07-15 04:00] VITALS: BP 134/73
[2016-07-15 04:24] LABS: BASOPHILS 0.1 % (0-2); EOSINOPHILS 0.3 % (0-7); HEMATOCRIT 30.6 % (36.0-48.0); HEMOGLOBIN 9.6 g/dL (12-16); IMMATURE GRANULOCYTES 0.6 % (0-5); LYMPHOCYTES 8.7 % (15-50); MCH 26.2 pg (26.0-34.0); MCHC 31.4 g/dL (31.0-37.0); MCV 83.6 fL (80.0-100.0); MEAN PLATELET VOLUME 9.2 fL (7.4-10.4); MONOCYTES 7.7 % (2-11); NEUTROPHILS 82.6 % (40-80); PLATELET COUNT 510 10x3/uL (130-400); RBC 3.66 10x6/uL (4.00-5.40); RDW 17.6 % (11.5-14.5)
[2016-07-15 04:41] LABS: ALBUMIN 1.6 g/dL (3.4-5.0); ALKALINE PHOSPHATASE 123 U/L (46-116); ALT (SGPT) 11 U/L (10-68); BILIRUBIN - TOTAL 0.22 mg/dL (0.2-1.3); CALC OSMOLALITY 274 mosm/kg (275-300); CALCIUM 8.4 mg/dL (8.5-10.1); CARBON DIOXIDE 28.6 mmol/L (21.0-32.0); CHLORIDE - SERUM 105 mmol/L (98-107); CREATININE - SERUM 0.6 mg/dL (0.6-1.3); GLUCOSE 103 mg/dL (74-106); POTASSIUM - SERUM 3.5 mmol/L (3.5-5.1); PROTEIN - SERUM 5.5 g/dL (6.4-8.2); SODIUM 138 mmol/L (136-145); UREA NITROGEN 10 mg/dL (7-18); eGFR NON AFRICAN AMERICAN > 90 mL/min (90-120)
--- NOTE | 2016-07-15 07:00 | NUR ---
RECEIVED REPORT. ASSUMED CARE OF PATIENT. CALL LIGHT WITHIN REACH. BED ALARM AND BARAK ALARM PATENT. PATIENT ALERT/AWAKE. DENIES NEEDS AT THIS TIME. ASKED PATIENT ABOUT PLACING AN IV, PATIENT REFUSED. RESP EVEN AND UNLABORED. NO DISTRESS.
--- NOTE | 2016-07-15 07:34 | NUR ---
AWAKE. DENIES ANY NEEDS. STATED "NO" TO OFFERING PLACING ANOTHER IV FOR HER IV MEDS. SCD'S ARE ON. BED ALARM IS ON.
--- NOTE | 2016-07-15 09:00 | NUR ---
INCONTINENT CARE PROVIDED. ASSISTED PATIENT BACK TO BED.
--- NOTE | 2016-07-15 09:10 | NUR ---
AT BEDSIDE. NOTIFIED MD THAT PATIENT DOES NOT WANT AN IV AND REFUSES PLACEMENT, MADE YESTERDAY. STATES WE WILL CHANGE WHAT WE ARE ABLE INTO A PO FORM. THANKED .
[2016-07-15 09:30] VITALS: BP 135/68
[2016-07-15 16:11] VITALS: BP 133/76
--- NOTE | 2016-07-15 16:32 | NUR ---
MEDICATED FOR ABD PAIN AT THIS TIME. NO DISTRESS.
[2016-07-15 17:43] VITALS: BP 157/72
--- NOTE | 2016-07-15 19:50 | NUR ---
ASSESSMENT COMPLETE. A&O. RESTING ON LEFT SIDE, RESPERATIONS EVEN AND UNLABORED. PT DENIES PAIN OR NEEDS, BED LOW, CL IN REACH.
[2016-07-15 20:00] VITALS: BP 118/70
--- NOTE | 2016-07-15 21:05 | NUR ---
HS MEDS GIVEN WITH FRESH ICE WATER, PT DENIES PAIN OR NEEDS, BED LOW, CL IN REACH.
[2016-07-16] VITALS: BP 132/77
--- NOTE | 2016-07-16 00:18 | NUR ---
RESIDENTIAL SPECIALIST AT BED SIDE TO OBTAIN VITALS. WILL CONT PLAN OF CARE.
[2016-07-16 04:00] VITALS: BP 128/75
[2016-07-16 04:39] LABS: BASOPHILS 0.1 % (0-2); EOSINOPHILS 0 % (0-7); HEMATOCRIT 30.9 % (36.0-48.0); HEMOGLOBIN 9.7 g/dL (12-16); IMMATURE GRANULOCYTES 0.6 % (0-5); LYMPHOCYTES 6.2 % (15-50); MCH 26.4 pg (26.0-34.0); MCHC 31.4 g/dL (31.0-37.0); MCV 84.2 fL (80.0-100.0); MEAN PLATELET VOLUME 9.6 fL (7.4-10.4); MONOCYTES 5.5 % (2-11); NEUTROPHILS 87.6 % (40-80); PLATELET COUNT 540 10x3/uL (130-400); RBC 3.67 10x6/uL (4.00-5.40)
[2016-07-16 04:54] LABS: ALBUMIN 1.7 g/dL (3.4-5.0); ALKALINE PHOSPHATASE 93 U/L (46-116); ALT (SGPT) 11 U/L (10-68); CALC OSMOLALITY 274 mosm/kg (275-300); CALCIUM 8.3 mg/dL (8.5-10.1); CARBON DIOXIDE 27.8 mmol/L (21.0-32.0); CHLORIDE - SERUM 103 mmol/L (98-107); CREATININE - SERUM 0.5 mg/dL (0.6-1.3); GLUCOSE 102 mg/dL (74-106); POTASSIUM - SERUM 3.6 mmol/L (3.5-5.1); PROTEIN - SERUM 5.6 g/dL (6.4-8.2); SODIUM 138 mmol/L (136-145); UREA NITROGEN 11 mg/dL (7-18); eGFR NON AFRICAN AMERICAN > 90 mL/min (90-120)
--- NOTE | 2016-07-16 07:05 | NUR ---
RECEIVED REPORT. ASSUMED CARE OF PATIENT. CALL LIGHT WITH IN REACH. BED IN LOW POSITION. BED ALARM PATENT. PATIENT ALERT AND AWAKE. DENIES NEEDS AT THIS TIME. NO DISTRESS.
[2016-07-16 08:15] VITALS: BP 116/71
--- NOTE | 2016-07-16 08:43 | NUR ---
MEDICATED FOR PAIN AT THIS TIME. PATIENT SITTING TO CHAIR AT BEDSIDE. NO DISTRESS.
[2016-07-16 12:08] VITALS: BP 96/54
--- NOTE | 2016-07-16 14:47 | NUR ---
DR. MEI PAGED TO INFORM PAIN MEDICATION IS NOT CONTROLLING PATIENTS PAIN. PAIN MED ONLY AVAILABLE EVERY8 HOURS, NORCO 5. AWAITING CALL BACK.
--- NOTE | 2016-07-16 15:16 | NUR ---
NEW ORDERS RECEIVED FROM FOR NORCO 7.5MG PO Q 4 HOURS PRN.
[2016-07-16 15:49] VITALS: BP 134/71
--- NOTE | 2016-07-16 16:44 | NUR ---
MEDICATED FOR PAIN AT THIS TIME. 09/18.
--- NOTE | 2016-07-16 19:35 | NUR ---
RESUMED CARE OF PT, LYING IN BED RESPIRATIONS EVEN AND UNLABORED ON ROOM AIR. EGG CRATE ON. NO NEEDS VOICED AT THIS TIME. BED ALARM ON. CALL LIGHT IN REACH. SEE NURSE ASSESSMENT. WILL CONTINUE TO MONITOR.
[2016-07-17] VITALS: BP 128/69
[2016-07-17 04:00] VITALS: BP 122/70
[2016-07-17 04:53] LABS: HEMATOCRIT 31.9 % (36.0-48.0); HEMOGLOBIN 10.2 g/dL (12-16); MCH 27.1 pg (26.0-34.0); MCV 84.8 fL (80.0-100.0); MEAN PLATELET VOLUME 9.6 fL (7.4-10.4); PLATELET COUNT 510 10x3/uL (130-400); RBC 3.76 10x6/uL (4.00-5.40); RDW 18.6 % (11.5-14.5); WBC 31.6 10x3/uL (4.8-10.8)
[2016-07-17 05:16] LABS: ALBUMIN 1.7 g/dL (3.4-5.0); ALKALINE PHOSPHATASE 110 U/L (46-116); ALT (SGPT) 12 U/L (10-68); BILIRUBIN - TOTAL 0.41 mg/dL (0.2-1.3); CALC OSMOLALITY 278 mosm/kg (275-300); CALCIUM 8.5 mg/dL (8.5-10.1); CARBON DIOXIDE 28.4 mmol/L (21.0-32.0); CHLORIDE - SERUM 105 mmol/L (98-107); CREATININE - SERUM 0.6 mg/dL (0.6-1.3); GLUCOSE 119 mg/dL (74-106); POTASSIUM - SERUM 3.8 mmol/L (3.5-5.1); PROTEIN - SERUM 5.3 g/dL (6.4-8.2); SODIUM 139 mmol/L (136-145); UREA NITROGEN 12 mg/dL (7-18); eGFR NON AFRICAN AMERICAN > 90 mL/min (90-120)
[2016-07-17 05:25] LABS: LYMPHOCYTES 4 % (15-50); MONOCYTES 2 % (2-11); NEUTROPHILS 83 % (40-80); PLATELET ESTIMATE NORMAL; PLATELET MORPHOLOGY GIANT PLTS PRESENT
--- NOTE | 2016-07-17 05:51 | NUR ---
NO CHANGES FROM PREVIOUS ASSESSMENT, CALL LIGHT IN REACH. WILL CONTINUE TO MONITOR.
[2016-07-17 07:55] VITALS: BP 136/70
[2016-07-17 09:16] LABS: SPE - A/G RATIO 0.5 (0.7-1.7); SPE - ALBUMIN 2.2 g/dL (2.9-4.4); SPE - ALPHA-1 GLOBULIN 0.7 g/dL (0.0-0.4); SPE - ALPHA-2 GLOBULIN 1.1 g/dL (0.4-1.0); SPE - BETA GLOBULIN 0.9 g/dL (0.7-1.3); SPE - GAMMA GLOBULIN 1.3 g/dL (0.4-1.8); SPE - M-SPIKE Not Observed g/dL (Not Observed); SPE - TOTAL PROTEIN 6.2 g/dL (6.0-8.5)
--- NOTE | 2016-07-17 11:53 | NUR ---
PT C/O PAINS IN HER ABDOMEN REQUESTING AND PROVIDED WITH PRN PAIN MEDICATION. FAMILY AT BEDSIDE AND VISITING. ENCOURAGING NUTRITION WILL ORDER PT A STRAWBERRY SHAKE SHE SAID SHE MIGHT DRINK. PT REFUSED HER MEGACE R/T THE LIQUID TASTING GROSS SHE SAID SO WILL PAGE DOCTOR AND TRY TO GET IT CHANGED.
[2016-07-17 12:00] VITALS: BP 138/70
--- NOTE | 2016-07-17 13:48 | NUR ---
Patient Name: BEN JORDAN Encounter No: [id number] : 1935 Primary Insurance: MEDICARE A & B Anticipated DC Date: 07-17-2016 Planned Disposition: Hospice Medical Facility External Planned Provider: [facility] DCP follow-up note: CM MET WITH PT'S SPOUSE AND FAMILY, DISCUSSED HOSPICE AND OPTIONS. PT'S SPOUSE UNDERSTANDS THAT HOSPICE WILL NOT PROVIDE THE 24 HOUR CAREGIVER IN PT'S HOME AND FAMILY WOULD HAVE TO ARRANGE CAREGIVERS AT HOME. PT DOES NOT WANT TO GO TO A PRISON. SPOUSE WOULD LIKE TO SEE IF PT WOULD MEET CRITERIA FOR INPATIENT HOSPICE AT [place], REQUESTED EVALUATION BY [facility]. IMPORTANT MESSAGE FROM MEDICARE PROVIDED AND DISCUSSED. CM NOTIFIED YADI ALMONTE OF [facility] WHO WILL EVALUATE PT SHORTLY. CM NOTIFIED PT AND FAMILY IN ROOM. CM FAXED REFERRAL TO [facility] AT [phone]. CM WAITING COMPLETION / RESULTS OF HOSPICE EVALUATION AND FAMILY DECISION REGARDING HOSPICE. Neo Gonzales, CASE MANAGEMENT
--- NOTE | 2016-07-17 15:43 | NUR ---
Patient Name: BEN JORDAN Encounter No: [id number] : 1935 Primary Insurance: MEDICARE A & B Anticipated DC Date: 07-18-2016 Planned Disposition: Hospice Home External Planned Provider: [facility] DCP follow-up note: CM SPOKE TO YADI ALMONTE OF [facility] WHO REPORTS EVALUATION COMPLETED AND SHE HAS MET WITH FAMILY TODAY; PT DOES NOT MEET INPATIENT HOSPICE GUIDELINES, [facility] WILL WORK WITH FAMILY FOR HOME HOSPICE AND WILL MAKE ARRANGEMENTS SOF DISCHARGE HOME WITH HOSPICE TOMORROW, 07-18-16. YADI REPORTS ANOTHER [facility] NURSE WILL VISIT LATER WITH FAMILY TODAY. PT NOT MEETING INPATIENT HOSPICE GUIDELINES, [facility] WORKING WITH FAMILY TO MAKE HOME HOSPICE ARRANGEMENTS FOR DISCHARGE HOME TOMORROW, 07-18-16. CM TO FOLLOW AND ASSIST NEEDED. Neo Gonzales, CASE MANGEMENT
--- NOTE | 2016-07-17 15:48 | NUR ---
PT IS RESTING IN BED QUIETLY WITH AND FAMILY AT BEDSIDE. SHE REFUSED HER FLAGYL AND STATES "I DONT WANT TO TAKE IT RIGHT NOW, I WILL LATER" PT WAS ABLE TO DRINK ALL OF HER STRAWBERRY SHAKE AND STATES SHE WOULD LIKE THEM ORDERED WITH EACH MEAL. WILL PROVIDE FOR PT. NO FURTHER NEEDS AT THIS TIME. CL IN REACH, BED IN LOWEST, SIDE RAILS X2. WILL CPOC.
[2016-07-17 16:00] VITALS: BP 108/55
[2016-07-17 19:00] VITALS: BP 125/66
--- NOTE | 2016-07-17 19:15 | NUR ---
ALERT/AWAKE ORIENTED TO NAME, PLACE. DENIES PAIN OR ANY NEEDS. TOOK A FEW SIPS OF WATER. ORIENTED TO CALL LIGHT. BED ALARM IS ON.
--- NOTE | 2016-07-17 21:34 | NUR ---
ADMIN TYLENOL 650MG PO FOR ELEVATED TEMP. ORDER REC'D FROM DR DAVIS. ALSO ORDERED BLOOD CULTURE X2, CXR AND UA. WEAVER AXMINSTER PRESENT IN ROOM TO GIVE A BATH.
[2016-07-18] VITALS: BP 124/68
[2016-07-18 05:38] VITALS: BP 167/86
[2016-07-18 05:51] LABS: BASOPHILS 0.1 % (0-2); EOSINOPHILS 0 % (0-7); HEMATOCRIT 32.2 % (36.0-48.0); HEMOGLOBIN 10.2 g/dL (12-16); IMMATURE GRANULOCYTES 0.4 % (0-5); LYMPHOCYTES 5.8 % (15-50); MCH 26.9 pg (26.0-34.0); MCHC 31.7 g/dL (31.0-37.0); MEAN PLATELET VOLUME 9.6 fL (7.4-10.4); MONOCYTES 7.2 % (2-11); NEUTROPHILS 86.5 % (40-80); PLATELET COUNT 575 10x3/uL (130-400); RBC 3.79 10x6/uL (4.00-5.40); RDW 19.1 % (11.5-14.5); WBC 21.4 10x3/uL (4.8-10.8)
[2016-07-18 06:34] LABS: ALBUMIN 1.7 g/dL (3.4-5.0); ALKALINE PHOSPHATASE 93 U/L (46-116); ALT (SGPT) 11 U/L (10-68); CALC OSMOLALITY 272 mosm/kg (275-300); CALCIUM 8.7 mg/dL (8.5-10.1); CARBON DIOXIDE 25.6 mmol/L (21.0-32.0); CHLORIDE - SERUM 103 mmol/L (98-107); CREATININE - SERUM 0.6 mg/dL (0.6-1.3); GLUCOSE 101 mg/dL (74-106); POTASSIUM - SERUM 3.6 mmol/L (3.5-5.1); SODIUM 137 mmol/L (136-145); UREA NITROGEN 11 mg/dL (7-18); eGFR NON AFRICAN AMERICAN > 90 mL/min (90-120)
--- NOTE | 2016-07-18 07:09 | NUR ---
RECEIVED REPORT FROM CLASSIFICATION AND TREATMENT DIRECTOR NURSE, DIALLO CHARLES. PT IN BED SLEEPING AT THIS TIME. CALL LIGHT IN REACH, NAD NOTED, WILL CONTINUE TO MONITOR.
[2016-07-18] MEDS ORDERED: PHENERGAN25 M1 PO (07:54)
[2016-07-18] MEDS ORDERED: LEVAQUIN750 MG PO (07:54)
[2016-07-18] MEDS ORDERED: MEGACE40 MG PO (07:55)
[2016-07-18] MEDS ORDERED: FLAGYL500 MG PO (07:55)
--- NOTE | 2016-07-18 09:16 | NUR ---
ADMINISTERED MORNING MEDICATIONS. PT IN BED, DENIES ANY NEEDS AT THIS TIME. CALL LIGHT IN REACH, NAD NOTED, WILL CONTINUE TO MONITOR.
[2016-07-18 12:00] VITALS: BP 138/68
[2016-07-18 16:28] VITALS: BP 145/78
--- NOTE | 2016-07-18 19:34 | NUR ---
ALERT/AWAKE ORIENTED TO PERSON, PLACE. NO IV ACCESS. HX OF REFUSING IV. REQUESTED SCD'S LEFT OFF. DENIES PAIN OR ANY NEEDS. BED ALARM IS ON.
[2016-07-18 20:00] VITALS: BP 131/74
[2016-07-19] VITALS: BP 132/78
--- NOTE | 2016-07-19 01:00 | NUR ---
ASSISTED PERISHABLE FREIGHT INSPECTOR WITH CLEANING FOR INCONTINENCE OF STOOL. CONSISTED OF LARGE AMOUNT, PASTY IN CONSISTANCY. CHANGED GOWN AND PAD. REPOSITIONED TO RIGHT SIDE WITH PILLOW TO HER BACK.
[2016-07-19 04:00] VITALS: BP 142/84
[2016-07-19 08:10] VITALS: BP 145/79
--- NOTE | 2016-07-19 08:19 | NUR ---
AM ROUNDS - PT APPEARS TO BE SLEEPING. EQUAL AND NON LABORED BREATHS. WILL CONTINUE TO MONITOR.
--- NOTE | 2016-07-19 09:43 | CN ---
PATIENT NAME:BEN JORDAN MEDICAL RECORD: [id number] : 31 LOCATION:D. D.2109 ADMIT DATE: 07/07/16 ACCOUNT: [id number] CONSULTING PHYSICIAN: SAÚL ESTEVEZ MD REFERRING PHYSICIAN: ALEKSANDAR HER DO DATE OF CONSULTATION: 07/11/2016 Consultation Note Addendum CHIEF COMPLAINT: Weakness. I have seen and examined the patient. I have discussed her case with Magui Mckeon, who is an advanced practice nurse and is the patient's relative. We have reviewed all of the x-ray and diagnostic reports that we could identify. This included a CT colonography as well as CT scans as well as endoscopic reports. There is some concern that she may have had a microperforation during a lower endoscopic procedure. The CT scans reveal the left lower quadrant suboptimally. The patient has had about a 40-pound weight loss over the past few months. Her primary care physician is Dr. Hermosillo. She was admitted to Dr. Her's service. She has heme-positive stools. The patient appears cachectic. Her physical examination is equivocal. Wherever I press on her abdomen, she states that it hurts a little bit. She has a significant bandemia on one of her CBCs. The bandemia was 22%. I am very concerned that the patient has a malignancy. I spent 1 hour reviewing the patient's laboratory and clinical data as well as discussing the patient's condition with the family and with the patient. Nothing aggravates. Nothing alleviates. Symptoms are of mild intensity. The fecal material is coming out, appears to be purulent. The patient has weakness. She has been anemic. This has required blood transfusions. She has had a failure to thrive. She has had a decreased appetite. This is a consultation note addendum. For the typed portion of the consult note including the past medical and surgical history, allergies, social history, as well as current medications, please see the chart. REVIEW OF SYSTEMS: Positive for weight loss, positive for anemia. Positive for generalized weakness. No fever, some mild nausea, and diffuse abdominal pain, which is mild as well. PHYSICAL EXAMINATION: GENERAL: She does appear acutely ill. Also appears chronically ill. The entire physical examination was performed in the presence of a female nurse. VITAL SIGNS: Reviewed. HEAD: External ears appear normal. EYES: Extraocular movements are intact. NECK: Trachea is midline. CHEST: No intercostal retractions. PULMONARY: Nonlabored, no stridor. ABDOMEN: Diffusely tender. No tenderness with tympany. No evidence of peritonitis. The abdomen is tympanitic. INTEGUMENT: There is an intertriginous rash. EXTREMITIES: No peripheral cyanosis. PSYCHIATRIC: Normal affect. NEUROLOGIC: Some evidence of slowing of higher cortical function. BACK: Mild thoracic kyphosis. CONSULT REPORT [id number] BEN JORDAN LYMPHATICS: No lymphangitic streaking of the exposed extremities. DIGITAL RECTAL: Reveals with what appears to be a left pelvic or left lower quadrant abdominal mass. The rectal vault is empty. VAGINAL: Reveals a blind vaginal cuff with what feels as though it is a diverticulum at the apex of the cuff to the right. IMPRESSION: 1. Anemia, failure to thrive, generalized weakness, possible endoscopic perforation, which would be an iatrogenic perforation. 2. Recent falls. PLAN: Magnesium. Phosphorus. Due to the bandemia, I will start intravenous antibiotics. CA 19-9. CEA. CT Chest, abdomen and pelvis as it appears that the previous CT scans were suboptimal and examining the left lower quadrant in particular. TRANSINT:[id number] Voice Confirmation ID: [id number] DOCUMENT ID: [id number] SAÚL ESTEVEZ MD at 0943 CC: [id number] DICTATION DATE: 07/13/16 1129 FOLDER MACHINE OPERATOR: 07/13/16 1512 ADM IN [facility] [address] [place] [address]
--- NOTE | 2016-07-19 09:43 | PN ---
PATIENT:BEN JORDAN MEDICAL RECORD: [id number] LOCATION:D. D.210 ADMISSION DATE: 07/07/16 PROGRESS NOTE DATE OF SERVICE: 07/12/2016 Progress Note Addendum CHIEF COMPLAINT: None. The patient is eating her dinner. Her appetite appears to be better. I talked to Magui Mckeon by phone. I have reviewed some of the labwork that has returned. I have personally reviewed the CT images. I have personally reviewed the radiologist's CT report. The left lower quadrant is still poorly opacified. I am concerned the patient does have a sigmoid malignancy. She has deficient in some electrolytes and had a low prealbumin and is acutely malnourished. 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 Nothing aggravates. Nothing alleviates. Symptoms are mild in intensity. They are difficult to characterize. I am going to order magnesium citrate as I would like to give her a mechanical prep. It may be that the patient will require endoscopic intervention to better evaluate the sigmoid colon abnormality. We are still waiting on return of some of the tumor markers. I would like to wait until the tumor markers come back before I talk to the entire family. The patient was not in favor of any more testing. She is not in favor of any operation either. This is a progress note addendum. For the typed portion of the progress note, please see the chart. This includes the past medical and surgical history, allergies, social history as well as current medications. REVIEW OF SYSTEMS: Appetite is better. Nausea is better. Abdominal pain appears to be better as well. REVIEW OF SYSTEMS: Negative other than as is described above. PHYSICAL EXAMINATION: GENERAL: The patient appears acutely ill. Also appears chronically ill. VITAL SIGNS: Reviewed. The entire physical examination was performed with the presence of a female nurse. HEAD: External ears appeared normal. Also there is a bilateral temporal wasting. NECK: Trachea is midline. CHEST: No intercostal retractions. PULMONARY: Nonlabored, no stridor. ABDOMEN: Protuberant, tympanitic, diffusely tender. No peritonitis to percussion. EXTREMITIES: No peripheral cyanosis. INTEGUMENT: There is an intertriginous rash. BACK: Mild thoracic kyphosis. LYMPHATIC: No lymphangitic streaking of the exposed extremities. PSYCHIATRIC: Normal affect. NEUROLOGIC: There is evidence of loss of higher cortical function. IMPRESSION: Anemia, failure to thrive, increased falls and weakness. PROGRESS NOTE [id number] BEN JORDAN PLAN: As described above. TRANSINT:[id number] Voice Confirmation ID: [id number] DOCUMENT ID: [id number] SAÚL ESTEVEZ MD at 0943 CC: [id number] DICTATION DATE: 07/13/16 1140 JOURNEYMAN GLAZIER: 07/13/16 1606 ADM IN [facility] [address] [place] [address]
[2016-07-19 12:17] VITALS: BP 139/73
--- NOTE | 2016-07-19 12:25 | NUR ---
Patient Name: BEN JORDAN Encounter No: [id number] : 1935 Primary Insurance: MEDICARE A & B Anticipated DC Date: 07-19-2016 Planned Disposition: Hospice Home External Planned Provider: [facility] DCP follow-up note: CM SPOKE TO YADI ALMONTE WHO INFORMED CM THAT ALL ARRANGEMENTS WILL BE COMPLETED AT PT'S HOME FOR DISCHARGE AT 1PM TODAY. CM FAXED DISCHARGE INFORMATION TO [facility] AT [phone]. CM SPOKE TO PT IN ROOM WHO IS IN AGREEMENT WITH DISCHARGE HOME TODAY WITH HOSPICE, REPORTS HER SPOUSE WILL PICK HER UP FOR DISCHARGE HOME. Neo Gonzales, CASE MANAGEMENT
--- NOTE | 2016-07-19 13:12 | NUR ---
DISCHARGE TEACHING DONE AND PAPERS PROVIDED. ASSISTED PT GETTING DRESSED, [facility] HER BROTHER IS HERE AT BEDSIDE FOR TRANSPORTATION. NO FURTHER NEEDS.
== END 2016-07-19 13:21 | disposition home health service (06) | DRG 392 ==
LOC: D.M2 10:04
PROVIDERS: Family Medicine; Internal Medicine Hematology & Oncology; Surgery; ADMIT Family Medicine
DX: K90.9 Intestinal malabsorption, unspecified (principal); K57.92 Diverticulitis of intestine, part unspecified, without perforation or abscess without bleeding; Z68.1 Body mass index [BMI] 19.9 or less, adult; D50.9 Iron deficiency anemia, unspecified; R62.7 Adult failure to thrive; R00.0 Tachycardia, unspecified